=== PATIENT | female | born 2000 | race Caucasian/White ===

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

== ENCOUNTER 2020-08-24 22:01 | Emergency (ER) | payer OTHER, BC ==
--- NOTE | 2020-08-24 22:23 | ED Lower Extremity ---
General Chief Complaint: Lower Extremity Stated Complaint: RIGHT FOOT INJ Nursing Triage Note: Pt states she fell around 1900 tonight and injured her right ankle/foot History of Present Illness Date Seen by Provider: Aug 24, 2020 Time Seen by Provider: 22:20 Initial Comments 19-year-old female presents with right foot and ankle pain. Patient reports she had a misstep around 7 PM this evening. Patient complains of some pain mainly in the foot. Patient has crutches she had at home so she is ambulating with them. Patient has no obvious deformity or swelling. She presents to make sure she did not break anything Allergies and Home Medications Allergies Coded Allergies: Penicillins (Verified Allergy, Unknown, 02/16/19) amoxicillin (Verified Allergy, Unknown, 02/16/19) cephalexin (Verified Allergy, Unknown, 02/16/19) Patient Home Medication List Home Medication List Reviewed: Yes Review of Systems Constitutional: no symptoms reported EENTM: no symptoms reported Respiratory: no symptoms reported Cardiovascular: no symptoms reported Gastrointestinal: no symptoms reported Musculoskeletal: see HPI Skin: no symptoms reported Past Uouhwqr-Movkek-Xwibnf Hx Past Med/Social Hx: Reviewed Nursing Past Med/Soc Hx Patient Social History Alcohol Use: Denies Use Smoking Status: Never a Smoker 2nd Hand Smoke Exposure: No Recent Infectious Disease Expo: No Recent Hopitalizations: No Seasonal Allergies Seasonal Allergies: No Past Medical History Surgeries: Yes Tonsillectomy Respiratory: No Cardiac: No Neurological: No Genitourinary: No Gastrointestinal: No Musculoskeletal: No Endocrine: No HEENT: No Cancer: No Psychosocial: No Integumentary: No Physical Exam Vital Signs Vital Signs - First Documented 08/24/20 22:04 Pulse 84 Resp 18 B/P (MAP) 125/59 O2 Delivery Room Air Capillary Refill : Height, Weight, BMI Height: '" Weight: lbs. oz. kg; 27.00 BMI Method: General Appearance: WD/WN, no apparent distress Neck: full range of motion Cardiovascular: normal peripheral pulses, regular rate, rhythm Respiratory: lungs clear, normal breath sounds Hips: bilateral hip non-tender Legs: bilateral leg non-tender Knees: bilateral knee non-tender Ankles: bilateral ankle normal inspection, bilateral ankle normal range of motion Feet: bilateral foot normal inspection, bilateral foot normal range of motion; right foot soft tissue tenderness Neurologic/Psychiatric: normal mood/affect, oriented x 3 Skin: normal color, warm/dry Progress/Results/Core Measures Results/Orders My Orders Orders - ALEX HUI DO Foot 3 View Right (08/24/20 22:23) Vital Signs/I&O 08/24/20 22:04 Pulse 84 Resp 18 B/P (MAP) 125/59 O2 Delivery Room Air Progress Progress Note : Progress Note Patient's x-ray has no acute findings. She should use Tylenol ibuprofen topical lidocaine ice as needed. Patient stable discharged home Diagnostic Imaging Diagonstic Imaging: Xray Plain Films/CT/US/NM/MRI: other Comments No acute fracture noted Reviewed: Reviewed by Me Departure Impression Primary Impression: Sprain of right foot Qualified Codes: S93.601A - Unspecified sprain of right foot, initial encounter Disposition: 01 HOME, SELF-CARE Condition: Stable Departure-Patient Inst. Referrals: GARETH BRUCE DO (PCP/Family) Primary Care Physician Patient Instructions: Foot Sprain (DC) Add. Discharge Instructions: Follow-up with your primary care provider if symptoms or not improving in 3 to 4 days for recheck of today's symptoms Ice, Tylenol and ibuprofen as needed All discharge instructions reviewed with patient and/or family. Voiced understanding. ALEX HUI DO Aug 24, 2020 22:23
--- NOTE | 2020-08-25 05:33 | Diagnostic Imaging Report ---
INDICATION: Pain. Fall. COMPARISON: None. FINDINGS: 3 views of the right foot demonstrate no acute fracture or dislocation. There are no focal osseous lesions. There is no soft tissue swelling. Joint spaces are well maintained. No radiopaque foreign bodies are seen. IMPRESSION: No acute fractures or dislocations of the right foot. Dictated by: Dictated on workstation # [id number]
== END 2020-08-24 23:01 | disposition home or self-care (01) ==
LOC: EDUNIT# 22:01 → ER FS 22:03
DX: S93.601A Unspecified sprain of right foot, initial encounter (principal); W18.39XA Other fall on same level, initial encounter
CPT/HCPCS: 73630

== ENCOUNTER 2022-03-05 21:21 | Emergency (ER) | payer OTHER, BC ==
[2022-03-05] MEDS ORDERED: ONDANSETRON 4 MG (ZOFRAN) ORAL DISSOLVE TAB PO STA (21:28)
[2022-03-05] MEDS ORDERED: ACETAMINOPHEN 500 MG TAB (TYLENOL) ONE (21:37)
--- NOTE | 2022-03-05 21:37 | ED General ---
General Chief Complaint: General Problems/Pain Stated Complaint: BLURRY VISION - VOMITING Nursing Triage Note: Pt complaining of vomiting and blurred vision. Pt states this started about 30 min [employer]. Pt also complaining of a headache Source of Information: Patient Exam Limitations: No Limitations History of Present Illness Date Seen by Provider: Mar 05, 2022 Time Seen by Provider: 21:25 Initial Comments Patient is a 21-year-old female who is presents with generalized headache nausea vomiting starting 1 hour prior to ED arrival. Headache is described as mild to moderate. Patient reports blurred vision. She denies neck pain, stiffness chest pain palpitation shortness of breath. No fever chills or sweats. No other acute symptoms or complaints. No medications or therapies prior to ED arrival. Timing/Duration: 1 Hour Severity: Mild Modifying Factors: improves with Other Associated Systoms: Other Allergies and Home Medications Allergies Coded Allergies: Penicillins (Verified Allergy, Unknown, 02/16/19) amoxicillin (Verified Allergy, Unknown, 02/16/19) cephalexin (Verified Allergy, Unknown, 02/16/19) Patient Home Medication List Home Medication List Reviewed: Yes Review of Systems Review of Systems Constitutional: see HPI EENTM: see HPI Respiratory: see HPI Cardiovascular: see HPI Genitourinary: see HPI Past Crgafrv-Vsprwp-Vbrcet Hx Patient Social History Tobacco Use?: No Use of E-Cig and/or Vaping dev: No Substance use?: No Alcohol Use?: No Pt feels they are or have been: No Seasonal Allergies Seasonal Allergies: No Past Medical History Surgeries: Yes Tonsillectomy Respiratory: No Cardiac: No Neurological: No Genitourinary: No Gastrointestinal: No Musculoskeletal: No Endocrine: No HEENT: No Cancer: No Psychosocial: No Integumentary: No Physical Exam Vital Signs Vital Signs - First Documented 03/05/22 21:24 Temp 36.0 Pulse 102 Resp 18 B/P (MAP) 129/86 (100) Pulse Ox 98 O2 Delivery Room Air Capillary Refill : Less Than 3 Seconds Height, Weight, BMI Height: '" Weight: lbs. oz. kg; 27.00 BMI Method: General Appearance: No Apparent Distress, WD/WN, Anxious Eyes: Bilateral Eye Normal Inspection, Bilateral Eye PERRL, Bilateral Eye EOMI HEENT: PERRL/EOMI, Normal ENT Inspection, Pharynx Normal Neck: Normal Inspection, Non Tender Respiratory: Lungs Clear, Normal Breath Sounds Cardiovascular: Regular Rate, Rhythm Gastrointestinal: Non Tender, Soft Neurologic/Psychiatric: Alert, Oriented x3, No Motor/Sensory Deficits, Normal Mood/Affect, manager patient II-XII Norm as Tested Focused Exam Sepsis Stage: Ruled Out Progress/Results/Core Measures Suspected Sepsis SIRS Temperature: Pulse: 102 Respiratory Rate: 18 Blood Pressure 129 /86 Mean: 100 Results/Orders Lab Results Laboratory Tests Test 03/05/22 21:30 Range/Units Glucometer 106 70-110 MG/DL My Orders Orders - VALENTINA NEWELL DO Accucheck Stat ONCE (03/05/22 21:28) Ondansetron Oral Dissolve Tab (Zofran (03/05/22 21:28) Ct Head Wo (03/05/22 21:29) Acetaminophen Tablet (Tylenol Tablet) (03/05/22 21:45) Acetaminophen Tablet (Tylenol Tablet) (03/05/22 21:37) Medications Given in ED Current Medications Medications Dose Ordered Sig/Liliam Route Start Time Stop Time Status Last Admin Dose Admin Acetaminophen 1,000 mg ONCE ONCE PO 03/05/22 21:45 03/05/22 21:46 DC 03/05/22 21:39 1,000 MG Vital Signs/I&O 03/05/22 21:24 Temp 36.0 Pulse 102 Resp 18 B/P (MAP) 129/86 (100) Pulse Ox 98 O2 Delivery Room Air Capillary Refill : Less Than 3 Seconds Blood Pressure Mean: 100 Point of Care Testing Finger Stick Blood Glucose: 106 Departure Communication (Admissions) Blood sugar is normal. Sudden onset mild to moderate headache with blurred vision. No focal neurologic deficits. Nausea headache addressed with clinical improvement. CT head nonacute. Symptoms consistent with headache with aura appears recommendations for full care watchful waiting PCP follow-up. Return precautions reviewed. Patient verbalizes understanding agreement with discharge instructions prior to departure Impression Primary Impression: Headache Disposition: HOME, SELF-CARE Condition: Stable Departure-Patient Inst. Decision time for Depature: 22:03 Referrals: GARETH BRUCE DO (PCP/Family) Primary Care Physician Patient Instructions: Headache, Adult ED Add. Discharge Instructions: You were evaluated in the emergency department for headache with nausea. Blood sugar and CT were performed and are nondiagnostic. The exact cause of your symptoms has not been determined. Please go home and rest, take Excedrin Migraine OTC and Zofran as needed for headache if it persists. Follow-up with your PCP 1 to 2 days as needed. Return to the ED if new or worsening symptoms. All discharge instructions reviewed with patient and/or family. Voiced understanding. VALENTINA NEWELL DO Mar 05, 2022 21:37
[2022-03-05] MEDS ORDERED: ACETAMINOPHEN 500 MG TAB (TYLENOL) PO ONE (21:45)
--- NOTE | 2022-03-05 21:54 | Diagnostic Imaging Report ---
PROCEDURE: CT head without contrast. TECHNIQUE: Multiple contiguous axial images were obtained through the brain without the use of intravenous contrast. Auto Exposure Controls were utilized during the CT exam to meet ALARA standards for radiation dose reduction. INDICATION: Headache COMPARISON: None available. FINDINGS: No hyperdense hemorrhage or space-occupying mass. No hydrocephalus or midline shift. The basilar cisterns are normal. Person-white matter differentiation is well preserved. The mastoid air cells are clear. Paranasal sinuses are normal. No focal osseous abnormality of the calvarium. IMPRESSION: 1. No acute intracranial process. Dictated by: Dictated on workstation # [id number]
[2022-03-05 22:03] VITALS: BP 129/86
[2022-03-05] MEDS ORDERED: ONDA4TAB11 SL (22:07)
[2022-03-05] MEDS ORDERED: PROCHLORPERAZINE 10 MG/2ML INJ (COMPAZINE) IV ONE (22:15)
[2022-03-05] MEDS ORDERED: PROCHLORPERAZINE 10 MG/2ML INJ (COMPAZINE) IM ONE (22:15)
[2022-03-05] MEDS ORDERED: diphenhydrAMINE 50 MG/ML INJ (BENADRYL) IM ONE (22:15)
== END 2022-03-05 22:18 | disposition home or self-care (01) ==
LOC: EDUNIT# 21:21 → ER FS 21:23
DX: R51.9 Headache, unspecified (principal); H53.8 Other visual disturbances; R11.2 Nausea with vomiting, unspecified; Z28.310 Unvaccinated for COVID-19
CPT/HCPCS: 70450; 82947